=== PATIENT | male | born 1950 | race African-American/Black ===

== ENCOUNTER 2018-05-17 14:29 | Emergency (ER) | payer OTHER, MEDICAID ==
[~2018-05-17] VITALS: Ht 172.7 cm; Wt 78.0 kg
[~2018-05-17 14:29] MED LIST: ALBU6.7H IH; AMLO10TA4 PO; BENA40TA9 PO; CYCL10TA7 PO; FLUT1DIS3 IH; MELO-106 PO; METO-539 PO; NORT25CA PO; P50 PO; TERA1CAP7 PO; TIZA4TAB4 PO; TRAM50TA3 PO
[2018-05-17 16:48] VITALS: BP 198/102
== END 2018-05-17 17:48 | disposition left against medical advice (07) ==
LOC: ER 14:29 → CANBEDREQ 19:36
DX: R51 Headache (principal); R05 Cough; I16.0 Hypertensive urgency; M79.18 Myalgia, other site; F14.10 Cocaine abuse, uncomplicated; F17.200 Nicotine dependence, unspecified, uncomplicated; Z96.659 Presence of unspecified artificial knee joint; Z98.890 Other specified postprocedural states; Z79.899 Other long term (current) drug therapy; Z88.5 Allergy status to narcotic agent
CPT/HCPCS: 99281

== ENCOUNTER 2018-09-04 21:14 | Inpatient (IN) | payer MEDICARE, MEDICAID ==
[~2018-09-04] VITALS: Ht 172.7 cm; Wt 78.5 kg
[2018-09-04 23:12] LABS: CHLORIDE 114 mEq/L (98-107)
[2018-09-04 23:17] LABS: BASOPHILS % 0.6 % (0.0-2.0); EOSINOPHILS % 0.6 % (0.0-5.0); HEMATOCRIT. 37.2 % (42.0-52.0); HEMOGLOBIN. 11.9 g/dL (14.0-18.0); LYMPHOCYTES % 10.8 % (20.0-50.0); MEAN CORPUSCULAR HEMOGLOBIN 22.8 pg (28.0-32.0); MEAN CORPUSCULAR VOLUME 71.4 fL (80.0-94.0); MEAN PLATELET VOLUME 9.2 fl (7.4-10.4); MONOCYTES % 8.1 % (2.0-8.0); NEUTROPHILS % 79.9 % (40.0-76.0); PLATELET 252 x1000/uL (130-400); RED BLOOD CELL COUNT 5.22 mill/uL (4.7-6.1); RED CELL DISTRIBUTION WIDTH 17.3 % (11.6-14.6)
[2018-09-04] MEDS ORDERED: DEXTROSE 50% WATER 50ML SYRINGE IV ONE (23:30)
[2018-09-04] MEDS ORDERED: SODIUM CHLORIDE 0.9% 1,000 ML IV ONE (23:30)
[2018-09-04] MEDS ORDERED: CALCIUM GLUCONATE 1,000 MG in DEXT 5% WATER 100 ML IV ONE (23:30)
[2018-09-04] MEDS ORDERED: SODIUM BICARBONATE 8.4% 1 MEQ/ML 50ML SYR IV ONE (23:30)
[2018-09-04] MEDS ORDERED: FUROSEMIDE 100MG/10ML VIAL IV ONE (23:30)
[2018-09-04] MEDS ORDERED: INSULIN REGULAR (HUMULIN R) 300UNITS/3ML IV ONE (23:30)
[2018-09-05] VITALS (32 sets, daily range): BP systolic 114–209; BP diastolic 55–117
[2018-09-05] MEDS ORDERED: SODIUM POLYSTYRENE SULFONATE 15 G/60 ML BOT PO ONE (01:30)
[2018-09-05] MEDS ORDERED: MAGNESIUM/ALUMINUM HYDROXIDE/SIMETHICONE 30ML UDC PO PRN (02:00)
[2018-09-05] MEDS ORDERED: HYDROCODONE/ACETAMINOPHEN 5/325MG TABLET PO PRN (02:00)
[2018-09-05] MEDS ORDERED: IPRATROPIUM/ALBUTEROL 0.5-3(2.5)MG/3ML NEB INH PRN (02:00)
[2018-09-05] MEDS ORDERED: NA PHOS,M-B/NA PHOS,DI-BA ENEMA 118ML PR PRN (02:00)
[2018-09-05] MEDS ORDERED: DIPHENHYDRAMINE 50MG/ML VIAL IV PRN (02:00)
[2018-09-05] MEDS ORDERED: GUAIFENESIN 200MG/10ML SUGAR FREE UDC PO PRN (02:00)
[2018-09-05] MEDS ORDERED: ACETAMINOPHEN 650MG/20.3ML UDC GT PRN (02:00)
[2018-09-05] MEDS ORDERED: ACETAMINOPHEN 325MG TABLET PO PRN (02:00)
[2018-09-05] MEDS ORDERED: ENOXAPARIN 40MG/0.4ML SYR SUBCUT SCH (02:00)
[2018-09-05] MEDS ORDERED: DEXTROSE 50% WATER 50ML SYRINGE IV PRN (02:00)
[2018-09-05] MEDS ORDERED: ONDANSETRON HCL 4MG/2ML INJ IV PRN (02:00)
[2018-09-05] MEDS ORDERED: DOCUSATE SODIUM 100MG CAPSULE PO PRN (02:00)
[2018-09-05] MEDS ORDERED: SODIUM POLYSTYRENE SULFONATE 15 G/60 ML BOT PO SCH (03:00)
[2018-09-05] MEDS ORDERED: DEXT 5%/0.9% NACL 1,000 ML IV SCH (05:13)
[2018-09-05] MEDS ORDERED: FURO20TA4 PO (05:17)
[2018-09-05] MEDS ORDERED: PIOG15TA66 PO (05:17)
[2018-09-05] MEDS ORDERED: LOSA100T3 PO (05:17)
[2018-09-05] MEDS ORDERED: METF-416 PO (05:17)
[2018-09-05] MEDS: INSULIN LISPRO 100 UNITS/ML SUBCUT SCH ×4 (06:35→21:00)
[2018-09-05] MEDS: BLOOD SUGAR DIAGNOSTIC STRIP TEST SCH ×4 (06:35→21:29)
[2018-09-05] MEDS: SODIUM CHLORIDE 0.9% INJ 3ML FLUSH IVF SCH ×3 (06:36→21:03)
[2018-09-05] MEDS: CLONIDINE 0.1MG TABLET PO PRN ×2 (06:58→13:48)
[2018-09-05] MEDS: ENOXAPARIN 30MG/0.3ML SYR SUBCUT SCH (09:19)
[2018-09-05 09:21] LABS: BASOPHILS % 0.7 % (0.0-2.0); EOSINOPHILS % 1.5 % (0.0-5.0); HEMOGLOBIN. 11.2 g/dL (14.0-18.0); LYMPHOCYTES % 17.3 % (20.0-50.0); MEAN CORPUSCULAR HEMOGLOBIN 22.2 pg (28.0-32.0); MEAN CORPUSCULAR VOLUME 71.6 fL (80.0-94.0); MEAN PLATELET VOLUME 8.8 fl (7.4-10.4); MONOCYTES % 11.6 % (2.0-8.0); NEUTROPHILS % 68.9 % (40.0-76.0); PLATELET 232 x1000/uL (130-400); RED BLOOD CELL COUNT 5.03 mill/uL (4.7-6.1); RED CELL DISTRIBUTION WIDTH 17.2 % (11.6-14.6)
[2018-09-05] MEDS ORDERED: SODIUM POLYSTYRENE SULFONATE 15 G/60 ML BOT PO NR (09:30)
[2018-09-05 09:36] LABS: PROTHROMBIN TIME 10.5 sec (9.6-11.0)
[2018-09-05 09:53] LABS: CHLORIDE 116 mEq/L (98-107)
[2018-09-05 10:02] LABS: PHOSPHORUS 3.7 mg/dL (2.5-4.9)
[2018-09-05] MEDS: AMLODIPINE 10MG TABLET PO SCH (11:17)
[2018-09-05] MEDS ORDERED: PNEUMOCOCCAL 23-VAL P-SAC VAC 0.5 ML IM ONE (12:00)
[2018-09-05] MEDS: HYDRALAZINE HCL 50MG TABLET PO SCH ×2 (13:48→21:29)
[2018-09-05] MEDS ORDERED: MAGNESIUM 2 G PREMIX 50 ML IV SCH (16:00)
[2018-09-05] MEDS: FUROSEMIDE 40MG/4ML VIAL IVP SCH (17:24)
[2018-09-05 19:26] LABS: CLARITY URINE CLEAR (CLEAR); COLOR URINE YELLOW (YELLOW); KETONES URINE NEGATIVE (NEGATIVE); LEUKOCYTE ESTERASE URINE NEGATIVE (NEGATIVE); NITRITE URINE NEGATIVE (NEGATIVE); OCCULT BLOOD URINE NEGATIVE (NEGATIVE); PROTEIN URINE 2+ (NEGATIVE); SPECIFIC GRAVITY URINE 1.012 (1.005-1.030); UROBILINOGEN URINE 0.2 E.U./dL (0.2-1.0)
[2018-09-05] MEDS: CARVEDILOL 6.25 MG TABLET PO SCH (21:29)
[2018-09-06] VITALS: BP 116/61
[2018-09-06 04:00] VITALS: BP 103/52
[2018-09-06] MEDS: SODIUM CHLORIDE 0.9% INJ 3ML FLUSH IVF SCH ×2 (05:23→14:42)
[2018-09-06] MEDS: HYDRALAZINE HCL 50MG TABLET PO SCH ×2 (05:24→14:39)
[2018-09-06] MEDS: INSULIN LISPRO 100 UNITS/ML SUBCUT SCH ×2 (06:16→11:57)
[2018-09-06] MEDS: BLOOD SUGAR DIAGNOSTIC STRIP TEST SCH ×2 (06:16→11:49)
[2018-09-06 06:50] LABS: HEMATOCRIT. 31.4 % (42.0-52.0); HEMOGLOBIN. 9.9 g/dL (14.0-18.0); MEAN CORPUSCULAR HEMOGLOBIN 22.3 pg (28.0-32.0); MEAN CORPUSCULAR VOLUME 70.8 fL (80.0-94.0); PLATELET 223 x1000/uL (130-400); RED BLOOD CELL COUNT 4.44 mill/uL (4.7-6.1); RED CELL DISTRIBUTION WIDTH 16.5 % (11.6-14.6)
[2018-09-06 07:03] LABS: CHLORIDE 112 mEq/L (98-107)
[2018-09-06 07:11] LABS: HDL CHOLESTEROL 46 mg/dL (40-59)
[2018-09-06 07:12] LABS: LDL CHOLESTEROL 76 mg/dL (5-100)
[2018-09-06 08:00] VITALS: BP 137/68
[2018-09-06] MEDS: FUROSEMIDE 40MG/4ML VIAL IVP SCH (09:15)
[2018-09-06] MEDS: AMLODIPINE 10MG TABLET PO SCH (09:16)
[2018-09-06] MEDS: CARVEDILOL 6.25 MG TABLET PO SCH (09:16)
[2018-09-06] MEDS: ENOXAPARIN 30MG/0.3ML SYR SUBCUT SCH (09:17)
[2018-09-06 12:00] VITALS: BP 118/48
[2018-09-06] MEDS ORDERED: SODIUM POLYSTYRENE SULFONATE 15 G/60 ML BOT PO NR (12:00)
[2018-09-06 13:42] LABS: PLATELET ESTIMATE NORMAL
[2018-09-06 15:31] VITALS: BP 118/48
[2018-09-06 16:00] VITALS: BP 145/70
[2018-09-06] MEDS ORDERED: ATORVASTATIN CALCIUM 40MG TABLET PO SCH (21:00)
== END 2018-09-06 17:10 | disposition home or self-care (01) | DRG 683 ==
LOC: ER 21:14 → MICUSO 09-05 01:02 → EDBEDREQDT 09-05 01:05 → EDBEDREQSVC 09-05 01:05 → EDBEDREQ 09-05 01:05 → EDBEDREQTM 09-05 01:05 → ENRESERV 09-05 03:25 → MICUSO 09-05 04:30 → 5WST 09-05 15:06
PROVIDERS: ADMIT Family Medicine; ATTEND Family Medicine
DX: I13.11 Hypertensive heart and chronic kidney disease without heart failure, with stage 5 chronic kidney disease, or end stage renal disease (principal); N18.5 Chronic kidney disease, stage 5; N17.9 Acute kidney failure, unspecified; E11.36 Type 2 diabetes mellitus with diabetic cataract; E11.649 Type 2 diabetes mellitus with hypoglycemia without coma; E11.22 Type 2 diabetes mellitus with diabetic chronic kidney disease; E66.9 Obesity, unspecified; E78.00 Pure hypercholesterolemia, unspecified; E78.5 Hyperlipidemia, unspecified; E83.42 Hypomagnesemia; R19.7 Diarrhea, unspecified; E87.5 Hyperkalemia; F14.90 Cocaine use, unspecified, uncomplicated; Z96.653 Presence of artificial knee joint, bilateral; J44.9 Chronic obstructive pulmonary disease, unspecified; D64.9 Anemia, unspecified; M19.90 Unspecified osteoarthritis, unspecified site; Z86.73 Personal history of transient ischemic attack (TIA), and cerebral infarction without residual deficits; Z87.891 Personal history of nicotine dependence; Z88.5 Allergy status to narcotic agent; Z98.41 Cataract extraction status, right eye; Z68.26 Body mass index [BMI] 26.0-26.9, adult
CPT/HCPCS: 36415; 71045; 76770; 80061; 82962; 83036; 83735; 83880; 84100; 84132; 84484; 84550; 90732; 93005; 99285; J0610; J1650; J1815; J1940; J3475; J3490; J7042; J7060

== ENCOUNTER 2019-11-06 08:40 | Emergency (ER) | payer OTHER, MEDICAID ==
[~2019-11-06] VITALS: Ht 172.7 cm; Wt 70.0 kg
[~2019-11-06 08:40] MED LIST changes: -ALBU6.7H IH; +ALBU6.7H11 IH; -BENA40TA9 PO; -CYCL10TA7 PO; +FURO20TA4 PO; -MELO-106 PO; -P50 PO; +PIOG15TA66 PO; -TIZA4TAB4 PO; -TRAM50TA3 PO
[2019-11-06] MEDS ORDERED: ACETAMINOPHEN 500MG TABLET PO ONE (09:15)
[2019-11-06] MEDS ORDERED: IBUPROFEN 800MG TABLET PO ONE (09:15)
[2019-11-06] MEDS ORDERED: CEFTRIAXONE SODIUM 1 G/VIAL IM ONE (10:45)
[2019-11-06] MEDS ORDERED: LIDOCAINE HCL 1% 20ML VIAL (Pyxis) INJ INFIL ONE (10:45)
[2019-11-06] MEDS ORDERED: TRAMADOL 50MG TABLET PO ONE (11:45)
[2019-11-06 12:11] VITALS: BP 148/78
== END 2019-11-06 12:12 | disposition home or self-care (01) ==
LOC: ER 08:40
DX: S82.64XA Nondisplaced fracture of lateral malleolus of right fibula, initial encounter for closed fracture (principal); S90.02XA Contusion of left ankle, initial encounter; S90.32XA Contusion of left foot, initial encounter; V03.90XA Pedestrian on foot injured in collision with car, pick-up truck or van, unspecified whether traffic or nontraffic accident, initial encounter; Y93.89 Activity, other specified; Y92.410 Unspecified street and highway as the place of occurrence of the external cause; I10 Essential (primary) hypertension; E11.9 Type 2 diabetes mellitus without complications; E78.00 Pure hypercholesterolemia, unspecified; Z86.73 Personal history of transient ischemic attack (TIA), and cerebral infarction without residual deficits; Z96.659 Presence of unspecified artificial knee joint
CPT/HCPCS: 29515; 73600; 73620; 96372; 99284; J0696; J3490

== ENCOUNTER 2020-01-20 17:06 | Inpatient (IN) | payer MEDICARE, MEDICAID ==
[~2020-01-20] VITALS: Ht 172.7 cm; Wt 60.3 kg
[2020-01-20 19:42] LABS: BASOPHILS % 0.9 % (0.0-2.0); EOSINOPHILS % 0.9 % (0.0-5.0); HEMATOCRIT. 31.8 % (42.0-52.0); HEMOGLOBIN. 9.9 g/dL (14.0-18.0); LYMPHOCYTES % 19.1 % (20.0-50.0); MEAN CORPUSCULAR HEMOGLOBIN 22.3 pg (28.0-32.0); MEAN CORPUSCULAR VOLUME 71.6 fL (80.0-94.0); MEAN PLATELET VOLUME 9.9 fl (7.4-10.4); MONOCYTES % 9.7 % (2.0-8.0); NEUTROPHILS % 69.4 % (40.0-76.0); PLATELET 225 x1000/uL (130-400); RED BLOOD CELL COUNT 4.44 mill/uL (4.7-6.1); RED CELL DISTRIBUTION WIDTH 17.4 % (11.6-14.6)
[2020-01-20 19:44] LABS: CHLORIDE 118 mEq/L (98-107)
[2020-01-20 19:50] LABS: PROTHROMBIN TIME 10.6 sec (9.6-11.0)
[2020-01-20] MEDS ORDERED: ALBUTEROL (0.083%) 2.5MG/3ML NEB HHN ONE (20:15)
[2020-01-20] MEDS ORDERED: DEXTROSE 50% WATER 50ML SYRINGE IV ONE (20:15)
[2020-01-20] MEDS ORDERED: INSULIN REGULAR (HUMULIN R) 300UNITS/3ML IV ONE (20:15)
[2020-01-20] MEDS ORDERED: CALCIUM GLUCONATE 1,000 MG in DEXT 5% WATER 100 ML IV ONE (20:15)
[2020-01-20] MEDS ORDERED: SODIUM BICARBONATE 8.4% 1 MEQ/ML 50ML SYR IV ONE (20:15)
[2020-01-20 21:21] LABS: CLARITY URINE CLEAR (CLEAR); COLOR URINE YELLOW (YELLOW); KETONES URINE NEGATIVE (NEGATIVE); LEUKOCYTE ESTERASE URINE NEGATIVE (NEGATIVE); NITRITE URINE NEGATIVE (NEGATIVE); OCCULT BLOOD URINE NEGATIVE (NEGATIVE); PH URINE 5.5 (4.5-8.0); PROTEIN URINE 2+ (NEGATIVE); SPECIFIC GRAVITY URINE 1.012 (1.005-1.030); UROBILINOGEN URINE 0.2 E.U./dL (0.2-1.0)
[2020-01-20] MEDS ORDERED: DOCUSATE SODIUM 100MG CAPSULE PO PRN (23:00)
[2020-01-20] MEDS ORDERED: LORAZEPAM 2MG/ML CPJ IV PRN (23:00)
[2020-01-20] MEDS ORDERED: IPRATROPIUM/ALBUTEROL 0.5-3(2.5)MG/3ML NEB NEB PRN (23:00)
[2020-01-20] MEDS ORDERED: MAGNESIUM/ALUMINUM HYDROXIDE/SIMETHICONE 30ML UDC PO PRN (23:00)
[2020-01-20] MEDS ORDERED: ONDANSETRON HCL 4MG/2ML INJ IV PRN (23:00)
[2020-01-20] MEDS: CLONIDINE 0.1MG TABLET PO PRN (23:19)
[2020-01-20 23:52] VITALS: BP 201/85
[2020-01-21] VITALS (24 sets, daily range): BP systolic 111–206; BP diastolic 52–90
[2020-01-21 00:20] LABS: PHOSPHORUS 4.1 mg/dL (2.5-4.9)
[2020-01-21] MEDS ORDERED: HYDR100T26 PO (00:30)
[2020-01-21] MEDS ORDERED: DEXTROSE 50% WATER 50ML SYRINGE IV PRN ×2 (00:30)
[2020-01-21] MEDS ORDERED: LOSA25TA26 PO (00:30)
[2020-01-21] MEDS ORDERED: CLON0.1T PO (00:30)
[2020-01-21 00:55] LABS: HEPATITIS B SURFACE AB 4.8 mIU/mL
[2020-01-21 01:06] LABS: HEPATITIS B SURFACE ANTIGEN NEGATIVE
[2020-01-21 01:36] LABS: HEPATITIS A AB IGM NEGATIVE (NEGATIVE)
[2020-01-21] MEDS: BLOOD SUGAR DIAGNOSTIC STRIP TEST SCH ×4 (06:02→21:00)
[2020-01-21 06:07] LABS: BASOPHILS % 0.6 % (0.0-2.0); HEMOGLOBIN. 9.4 g/dL (14.0-18.0); LYMPHOCYTES % 14.9 % (20.0-50.0); MEAN CORPUSCULAR HEMOGLOBIN 22.2 pg (28.0-32.0); MEAN CORPUSCULAR VOLUME 70.8 fL (80.0-94.0); MEAN PLATELET VOLUME 9.2 fl (7.4-10.4); MONOCYTES % 12.2 % (2.0-8.0); NEUTROPHILS % 70.3 % (40.0-76.0); PLATELET 196 x1000/uL (130-400); RED BLOOD CELL COUNT 4.24 mill/uL (4.7-6.1); RED CELL DISTRIBUTION WIDTH 17.6 % (11.6-14.6)
[2020-01-21] MEDS: CLONIDINE 0.1MG TABLET PO PRN (06:33)
[2020-01-21] MEDS: INSULIN LISPRO 100 UNITS/ML SUBCUT SCH ×4 (07:20→21:00)
[2020-01-21] MEDS: ENOXAPARIN 30MG/0.3ML SYR SUBCUT SCH (09:00)
[2020-01-21] MEDS: FOLIC ACID 1MG TABLET PO SCH (10:48)
[2020-01-21] MEDS: NIFEDIPINE XL 30MG TAB PO SCH (11:27)
[2020-01-21] MEDS ORDERED: SODIUM POLYSTYRENE SULFONATE 15 G/60 ML BOT PO NR (12:00)
[2020-01-21] MEDS ORDERED: INFLUENZA VACCINE 05/PF 0.5 ML VIAL IM ONE (12:00)
[2020-01-21] MEDS ORDERED: MAGNESIUM 2 G PREMIX 50 ML IV NR (12:00)
[2020-01-21] MEDS ORDERED: CEFAZOLIN 1000MG PREMIX 50 ML IV ONE (12:49)
[2020-01-21] MEDS ORDERED: SODIUM BICARBONATE 4% (2.4MEQ) 5ML VIAL IV ONE (12:55)
[2020-01-21] MEDS ORDERED: LIDOCAINE HCL 1% 20ML VIAL (Pyxis) INJ ONE (12:55)
[2020-01-21] MEDS ORDERED: CEFAZOLIN 1000MG/50ML PREMIX IV ONE (13:15)
[2020-01-21] MEDS ORDERED: FENTANYL CITRATE/PF 50MCG/ML 2ML VIAL IV ONE (13:30)
[2020-01-21] MEDS ORDERED: HEPARIN 1000 UNITS/ML 10ML ONE (13:36)
[2020-01-21] MEDS ORDERED: EPOETIN ALFA-EPBX 10,000 UNIT/ML VIAL SUBCUT NR (21:00)
[2020-01-21] MEDS: HYDROCODONE/ACETAMINOPHEN 5/325MG TABLET PO PRN (21:34)
[2020-01-22] VITALS (13 sets, daily range): BP systolic 126–188; BP diastolic 66–98
[2020-01-22] MEDS: INSULIN LISPRO 100 UNITS/ML SUBCUT SCH ×4 (06:18→22:15)
[2020-01-22] MEDS: BLOOD SUGAR DIAGNOSTIC STRIP TEST SCH ×4 (06:18→21:57)
[2020-01-22] MEDS: CLONIDINE 0.1MG TABLET PO PRN ×2 (06:33→23:05)
[2020-01-22 06:44] LABS: BASOPHILS % 0.7 % (0.0-2.0); EOSINOPHILS % 2.3 % (0.0-5.0); HEMATOCRIT. 34.1 % (42.0-52.0); HEMOGLOBIN. 10.7 g/dL (14.0-18.0); LYMPHOCYTES % 15.6 % (20.0-50.0); MEAN CORPUSCULAR HEMOGLOBIN 22.1 pg (28.0-32.0); MEAN CORPUSCULAR VOLUME 70.7 fL (80.0-94.0); MONOCYTES % 14.1 % (2.0-8.0); NEUTROPHILS % 67.3 % (40.0-76.0); PLATELET 188 x1000/uL (130-400); RED BLOOD CELL COUNT 4.83 mill/uL (4.7-6.1); RED CELL DISTRIBUTION WIDTH 17.1 % (11.6-14.6)
[2020-01-22] MEDS: ENOXAPARIN 30MG/0.3ML SYR SUBCUT SCH (09:51)
[2020-01-22] MEDS: FOLIC ACID 1MG TABLET PO SCH (09:51)
[2020-01-22] MEDS: NIFEDIPINE XL 30MG TAB PO SCH (09:54)
[2020-01-23] VITALS (14 sets, daily range): BP systolic 107–191; BP diastolic 64–104
[2020-01-23] MEDS: BLOOD SUGAR DIAGNOSTIC STRIP TEST SCH ×4 (06:50→21:28)
[2020-01-23] MEDS: INSULIN LISPRO 100 UNITS/ML SUBCUT SCH ×4 (08:53→21:00)
[2020-01-23] MEDS: ENOXAPARIN 30MG/0.3ML SYR SUBCUT SCH (08:54)
[2020-01-23] MEDS: NIFEDIPINE XL 30MG TAB PO SCH (08:54)
[2020-01-23] MEDS: FOLIC ACID 1MG TABLET PO SCH (08:54)
[2020-01-23] MEDS: HYDROCODONE/ACETAMINOPHEN 5/325MG TABLET PO PRN ×2 (08:55→22:16)
[2020-01-23] MEDS: CLONIDINE 0.1MG TABLET PO PRN (22:16)
[2020-01-24] VITALS (12 sets, daily range): BP systolic 112–168; BP diastolic 49–95
[2020-01-24 07:02] LABS: HEMATOCRIT. 34.2 % (42.0-52.0); HEMOGLOBIN. 10.8 g/dL (14.0-18.0); MEAN CORPUSCULAR HEMOGLOBIN 22.4 pg (28.0-32.0); MEAN CORPUSCULAR VOLUME 71.1 fL (80.0-94.0); MEAN PLATELET VOLUME 9.2 fl (7.4-10.4); PLATELET 187 x1000/uL (130-400); RED BLOOD CELL COUNT 4.81 mill/uL (4.7-6.1); RED CELL DISTRIBUTION WIDTH 16.9 % (11.6-14.6)
[2020-01-24] MEDS: BLOOD SUGAR DIAGNOSTIC STRIP TEST SCH ×4 (07:07→20:51)
[2020-01-24] MEDS: INSULIN LISPRO 100 UNITS/ML SUBCUT SCH ×4 (08:35→20:51)
[2020-01-24] MEDS: ENOXAPARIN 30MG/0.3ML SYR SUBCUT SCH (08:36)
[2020-01-24] MEDS: FOLIC ACID 1MG TABLET PO SCH (08:36)
[2020-01-24] MEDS: NIFEDIPINE XL 30MG TAB PO SCH (08:36)
[2020-01-24] MEDS: HYDROCODONE/ACETAMINOPHEN 5/325MG TABLET PO PRN (11:30)
[2020-01-24 12:52] LABS: PLATELET ESTIMATE NORMAL
[2020-01-24] MEDS ORDERED: SODIUM POLYSTYRENE SULFONATE 15 G/60 ML BOT PO SCH (13:00)
[2020-01-24] MEDS: CLONIDINE 0.1MG TABLET PO PRN (20:51)
[2020-01-25] VITALS (12 sets, daily range): BP systolic 121–163; BP diastolic 58–95
[2020-01-25] MEDS: HYDROCODONE/ACETAMINOPHEN 5/325MG TABLET PO PRN (01:14)
[2020-01-25] MEDS: BLOOD SUGAR DIAGNOSTIC STRIP TEST SCH ×4 (07:10→21:30)
[2020-01-25] MEDS: INSULIN LISPRO 100 UNITS/ML SUBCUT SCH ×4 (07:20→21:00)
[2020-01-25] MEDS: ENOXAPARIN 30MG/0.3ML SYR SUBCUT SCH (08:29)
[2020-01-25] MEDS: FOLIC ACID 1MG TABLET PO SCH (08:30)
[2020-01-25] MEDS: NIFEDIPINE XL 30MG TAB PO SCH (08:31)
[2020-01-25] MEDS: CLONIDINE 0.1MG TABLET PO PRN (18:18)
[2020-01-26] VITALS (8 sets, daily range): BP systolic 113–165; BP diastolic 50–84
[2020-01-26 06:47] LABS: HEMATOCRIT. 31.3 % (42.0-52.0); HEMOGLOBIN. 9.9 g/dL (14.0-18.0); MEAN CORPUSCULAR HEMOGLOBIN 22.1 pg (28.0-32.0); MEAN PLATELET VOLUME 9.3 fl (7.4-10.4); PLATELET 200 x1000/uL (130-400); RED BLOOD CELL COUNT 4.47 mill/uL (4.7-6.1); RED CELL DISTRIBUTION WIDTH 16.5 % (11.6-14.6)
[2020-01-26] MEDS: BLOOD SUGAR DIAGNOSTIC STRIP TEST SCH ×2 (06:55→11:54)
[2020-01-26] MEDS: INSULIN LISPRO 100 UNITS/ML SUBCUT SCH ×2 (07:20→11:57)
[2020-01-26] MEDS: NIFEDIPINE XL 30MG TAB PO SCH (09:45)
[2020-01-26] MEDS: FOLIC ACID 1MG TABLET PO SCH (09:45)
[2020-01-26] MEDS: ENOXAPARIN 30MG/0.3ML SYR SUBCUT SCH (09:45)
[2020-01-26] MEDS ORDERED: NIFE-33 PO (11:28)
[2020-01-26 18:20] LABS: PLATELET ESTIMATE NORMAL
== END 2020-01-26 16:06 | disposition home or self-care (01) | DRG 640 ==
LOC: ER 17:06 → 3WST 20:43 → EDBEDREQ 20:50 → EDBEDREQTM 20:50 → ENRESERV 21:55 → 3WST 23:03
PROVIDERS: ADMIT Internal Medicine Nephrology; ATTEND Internal Medicine Nephrology
PROC: 0JH63XZ Insertion of Tunneled Vascular Access Device into Chest Subcutaneous Tissue and Fascia, Percutaneous Approach (ICD-10-PCS; principal; 2020-01-21)
PROC: 02HV33Z Insertion of Infusion Device into Superior Vena Cava, Percutaneous Approach (ICD-10-PCS; 2020-01-21)
PROC: B5181ZA Fluoroscopy of Superior Vena Cava using Low Osmolar Contrast, Guidance (ICD-10-PCS; 2020-01-21)
PROC: 5A1D70Z Performance of Urinary Filtration, Intermittent, Less than 6 Hours Per Day (ICD-10-PCS; 2020-01-23)
PROC: 5A1D70Z Performance of Urinary Filtration, Intermittent, Less than 6 Hours Per Day (ICD-10-PCS; 2020-01-25)
DX: E87.5 Hyperkalemia (principal); N18.6 End stage renal disease; I12.0 Hypertensive chronic kidney disease with stage 5 chronic kidney disease or end stage renal disease; E11.22 Type 2 diabetes mellitus with diabetic chronic kidney disease; D63.8 Anemia in other chronic diseases classified elsewhere; E83.42 Hypomagnesemia; E78.5 Hyperlipidemia, unspecified; E87.8 Other disorders of electrolyte and fluid balance, not elsewhere classified; E78.00 Pure hypercholesterolemia, unspecified; Z20.828 Contact with and (suspected) exposure to other viral communicable diseases; Z96.659 Presence of unspecified artificial knee joint; Z88.5 Allergy status to narcotic agent; Z99.2 Dependence on renal dialysis; Z86.73 Personal history of transient ischemic attack (TIA), and cerebral infarction without residual deficits; Z79.899 Other long term (current) drug therapy
CPT/HCPCS: 36415; 36558; 71045; 76937; 77001; 80048; 80053; 81003; 82728; 82962; 83036; 83540; 83550; 83735; 83970; 84100; 84484; 85025; 86705; 86706; 86709; 86803; 87340; 87426; 90686; 93005; 94640; 99152; 99153; 99291; C1750; J0610; J0690; J0885; J1642; J1644; J1650; J1815; J3010; J3475; J3490; J7060; G0500

== ENCOUNTER 2020-06-16 22:04 | Inpatient (IN) | payer MEDICARE, MEDICAID ==
[~2020-06-16] VITALS: Ht 172.7 cm; Wt 74.4 kg
[~2020-06-16 22:04] MED LIST changes: -AMLO10TA4 PO; -FURO20TA4 PO; -METO-539 PO; +NIFE-33 PO; +TERA1CAP46 PO; -TERA1CAP7 PO
[2020-06-16] MEDS ORDERED: VANCOMYCIN 1 G PREMIX 200 ML IV ONE (22:45)
[2020-06-16] MEDS ORDERED: SODIUM CHLORIDE 0.9% 1000ML BAG (SEPSIS BOLUS) IV ONE (22:45)
[2020-06-16] MEDS ORDERED: PIPERACILLIN/TAZ 3.375G PREMIX 50 ML IV ONE (22:45)
[2020-06-16 23:26] LABS: BASOPHILS % 0.8 % (0.0-2.0); HEMOGLOBIN. 12.3 g/dL (14.0-18.0); LYMPHOCYTES % 15.6 % (20.0-50.0); MEAN CORPUSCULAR HEMOGLOBIN 23.7 pg (28.0-32.0); MEAN PLATELET VOLUME 7.4 fl (7.4-10.4); MONOCYTES % 11.6 % (2.0-8.0); PLATELET 374 x1000/uL (130-400); RED CELL DISTRIBUTION WIDTH 16.4 % (11.6-14.6)
[2020-06-16 23:28] LABS: CHLORIDE 99 mEq/L (98-107)
[2020-06-16 23:30] LABS: PROTHROMBIN TIME 10.5 sec (9.6-11.0)
[2020-06-16] MEDS ORDERED: HYDROCODONE/ACETAMINOPHEN 10/325MG TABLET PO ONE (23:45)
[2020-06-17 00:43] LABS: CLARITY URINE CLEAR (CLEAR); COLOR URINE YELLOW (YELLOW); KETONES URINE TRACE (NEGATIVE); LEUKOCYTE ESTERASE URINE TRACE (NEGATIVE); NITRITE URINE NEGATIVE (NEGATIVE); OCCULT BLOOD URINE 1+ (NEGATIVE); PROTEIN URINE 2+ (NEGATIVE); SPECIFIC GRAVITY URINE 1.022 (1.005-1.030)
[2020-06-17] MEDS ORDERED: CLOP75TA33 MT (01:37)
[2020-06-17] MEDS ORDERED: GLIP10TA10 MT (01:37)
[2020-06-17] MEDS ORDERED: HYDR100T26 MT (01:37)
[2020-06-17] MEDS ORDERED: FURO20TA4 MT (01:37)
[2020-06-17] MEDS ORDERED: CLON0.1T MT (01:37)
[2020-06-17 02:29] VITALS: BP 181/87
[2020-06-17] MEDS ORDERED: ONDANSETRON HCL 4MG/2ML INJ IV PRN (03:00)
[2020-06-17] MEDS ORDERED: HYDROCODONE/ACETAMINOPHEN 5/325MG TABLET PO PRN (03:00)
[2020-06-17] MEDS ORDERED: CLONIDINE 0.1MG TABLET PO PRN (03:00)
[2020-06-17] MEDS ORDERED: DIPHENHYDRAMINE 50MG/ML VIAL IV PRN (03:00)
[2020-06-17] MEDS ORDERED: METO-385 MT (03:11)
[2020-06-17] MEDS ORDERED: ASPI-1497 MT (03:14)
[2020-06-17] MEDS ORDERED: ENOXAPARIN 60MG/0.6ML SYR SUBCUT SCH (04:00)
[2020-06-17] MEDS: MORPHINE SULFATE 2 MG/ML CPJ (NOT FOR IM USE) IV PRN ×3 (04:03→20:11)
[2020-06-17] MEDS: HYDRALAZINE HCL 100MG TABLET PO SCH ×3 (06:22→21:46)
[2020-06-17] MEDS: CLONIDINE 0.1MG TABLET PO SCH ×3 (06:22→21:46)
[2020-06-17 07:33] LABS: BASOPHILS % 0.9 % (0.0-2.0); EOSINOPHILS % 2.3 % (0.0-5.0); HEMATOCRIT. 34.6 % (42.0-52.0); HEMOGLOBIN. 11.3 g/dL (14.0-18.0); LYMPHOCYTES % 17.1 % (20.0-50.0); MEAN CORPUSCULAR HEMOGLOBIN 24.1 pg (28.0-32.0); MEAN CORPUSCULAR VOLUME 74.1 fL (80.0-94.0); MEAN PLATELET VOLUME 7.3 fl (7.4-10.4); MONOCYTES % 11.6 % (2.0-8.0); NEUTROPHILS % 68.1 % (40.0-76.0); PLATELET 335 x1000/uL (130-400); RED BLOOD CELL COUNT 4.67 mill/uL (4.7-6.1)
[2020-06-17] MEDS: BLOOD SUGAR DIAGNOSTIC STRIP TEST SCH ×4 (07:43→21:00)
[2020-06-17] MEDS: INSULIN LISPRO 100 UNITS/ML SUBCUT SCH ×4 (07:44→21:00)
[2020-06-17 08:00] VITALS: BP 118/61
[2020-06-17] MEDS: GLIPIZIDE 10MG TABLET PO SCH ×2 (08:30→17:56)
[2020-06-17] MEDS: METOPROLOL TARTRATE 50MG TABLET PO SCH ×2 (08:32→20:10)
[2020-06-17] MEDS ORDERED: ASPIRIN 81MG TABLET PO SCH (09:00)
[2020-06-17] MEDS ORDERED: FUROSEMIDE 20MG TABLET PO SCH (09:00)
[2020-06-17] MEDS ORDERED: CLOPIDOGREL 75MG TABLET PO SCH (09:00)
[2020-06-17] MEDS ORDERED: PIPERACILLIN/TAZOBACTAM 3.375 G in DEXT 5% WATER 100 ML IV SCH (09:30)
[2020-06-17] MEDS ORDERED: VANCOMYCIN 500 MG PREMIX 100 ML IV SCH (11:00)
[2020-06-17] MEDS: PIPERACILLIN/TAZOBACTAM 2.25 G in DEXTROSE 5% WATER 50 ML IV SCH ×2 (11:05→17:56)
[2020-06-17 12:00] VITALS: BP 116/62
[2020-06-17 16:00] VITALS: BP 127/65
[2020-06-17 20:00] VITALS: BP 121/59
[2020-06-17] MEDS: DEXTROSE 50% WATER 50ML SYRINGE IV PRN (21:48)
[2020-06-18] VITALS: BP 113/55
[2020-06-18] MEDS: PIPERACILLIN/TAZOBACTAM 2.25 G in DEXTROSE 5% WATER 50 ML IV SCH ×4 (00:32→23:12)
[2020-06-18 04:00] VITALS: BP 143/70
[2020-06-18] MEDS: HYDRALAZINE HCL 100MG TABLET PO SCH ×3 (05:01→23:11)
[2020-06-18] MEDS: CLONIDINE 0.1MG TABLET PO SCH ×3 (05:01→23:10)
[2020-06-18] MEDS: MORPHINE SULFATE 2 MG/ML CPJ (NOT FOR IM USE) IV PRN ×2 (05:02→19:37)
[2020-06-18] MEDS: DEXTROSE 50% WATER 50ML SYRINGE IV PRN (06:35)
[2020-06-18] MEDS ORDERED: DIPHENHYDRAMINE 50MG/ML VIAL IV PRN (07:45)
[2020-06-18] MEDS ORDERED: DEXTROSE 50% WATER 50ML SYRINGE IV PRN (07:45)
[2020-06-18] MEDS ORDERED: ONDANSETRON HCL 4MG/2ML INJ IV PRN (07:45)
[2020-06-18] MEDS ORDERED: CLONIDINE 0.1MG TABLET PO PRN (07:45)
[2020-06-18] MEDS: INSULIN LISPRO 100 UNITS/ML SUBCUT SCH ×4 (07:50→21:00)
[2020-06-18 08:00] VITALS: BP 108/58
[2020-06-18] MEDS: GLIPIZIDE 10MG TABLET PO SCH ×2 (08:00→17:05)
[2020-06-18] MEDS: ASPIRIN 81MG TABLET PO SCH (08:28)
[2020-06-18] MEDS: ENOXAPARIN 60MG/0.6ML SYR SUBCUT SCH (08:28)
[2020-06-18] MEDS: FUROSEMIDE 20MG TABLET PO SCH (08:28)
[2020-06-18] MEDS: METOPROLOL TARTRATE 50MG TABLET PO SCH ×2 (08:30→21:25)
[2020-06-18] MEDS ORDERED: CLOPIDOGREL 75MG TABLET PO SCH (09:00)
[2020-06-18] MEDS ORDERED: LIDOCAINE HCL 1% 20ML VIAL (Pyxis) INJ ONE (09:54)
[2020-06-18] MEDS ORDERED: IOHEXOL 350 MG/ML 200ML INFUS..BTL IV ONE (10:38)
[2020-06-18 12:00] VITALS: BP 109/49
[2020-06-18] MEDS: BLOOD SUGAR DIAGNOSTIC STRIP TEST SCH ×3 (12:46→21:45)
[2020-06-18] MEDS: HYDROCODONE/ACETAMINOPHEN 5/325MG TABLET PO PRN ×2 (13:15→23:12)
[2020-06-18 16:00] VITALS: BP 114/61
[2020-06-18 20:00] VITALS: BP 145/73
[2020-06-19] VITALS: BP 143/66
[2020-06-19] MEDS: MORPHINE SULFATE 2 MG/ML CPJ (NOT FOR IM USE) IV PRN ×3 (02:51→11:24)
[2020-06-19 04:00] VITALS: BP 158/80
[2020-06-19] MEDS: PIPERACILLIN/TAZOBACTAM 2.25 G in DEXTROSE 5% WATER 50 ML IV SCH ×3 (05:03→21:35)
[2020-06-19] MEDS: HYDRALAZINE HCL 100MG TABLET PO SCH ×3 (05:03→21:35)
[2020-06-19] MEDS: CLONIDINE 0.1MG TABLET PO SCH ×3 (05:03→21:34)
[2020-06-19] MEDS: GLIPIZIDE 10MG TABLET PO SCH (07:20)
[2020-06-19] MEDS ORDERED: HEPARIN SODIUM 1,000 UNIT/1ML VIAL IV ONE (07:36)
[2020-06-19] MEDS: INSULIN LISPRO 100 UNITS/ML SUBCUT SCH ×4 (07:50→21:00)
[2020-06-19 08:06] VITALS: BP 142/64
[2020-06-19] MEDS: BLOOD SUGAR DIAGNOSTIC STRIP TEST SCH ×4 (08:12→21:35)
[2020-06-19] MEDS: METOPROLOL TARTRATE 50MG TABLET PO SCH ×2 (09:03→21:34)
[2020-06-19] MEDS: ENOXAPARIN 60MG/0.6ML SYR SUBCUT SCH (09:05)
[2020-06-19 11:12] VITALS: BP 120/57
[2020-06-19] MEDS ORDERED: DIPHENHYDRAMINE 50MG/ML VIAL ONE (11:57)
[2020-06-19] MEDS ORDERED: MIDAZOLAM HCL 2 MG/2 ML VIAL ONE ×2 (11:57→13:21)
[2020-06-19] MEDS ORDERED: FENTANYL CITRATE/PF 50MCG/ML 2ML VIAL ONE ×2 (11:58→13:21)
[2020-06-19] MEDS ORDERED: IODIXANOL 320MG/ML 100 ML BOTTLE IV ONE (12:42)
[2020-06-19] MEDS ORDERED: LIDOCAINE HCL 1% 20ML VIAL (Pyxis) INJ ONE (12:42)
[2020-06-19] MEDS ORDERED: IOHEXOL-300 100 ML BOTTLE ONE (13:13)
[2020-06-19] MEDS ORDERED: FENTANYL CITRATE/PF 50MCG/ML 5ML VIAL ONE (14:13)
[2020-06-19] MEDS ORDERED: MIDAZOLAM HCL 5 MG/5 ML VIAL ONE (14:14)
[2020-06-19 16:08] VITALS: BP 167/83
[2020-06-19] MEDS: CLOPIDOGREL 75MG TABLET PO SCH (18:37)
[2020-06-19] MEDS: ASPIRIN 81MG TABLET PO SCH (18:37)
[2020-06-19] MEDS: FUROSEMIDE 20MG TABLET PO SCH (18:38)
[2020-06-19 20:00] VITALS: BP 128/80
[2020-06-19 21:00] LABS: HEMATOCRIT. 35.5 % (42.0-52.0); HEMOGLOBIN. 11.4 g/dL (14.0-18.0); MEAN CORPUSCULAR HEMOGLOBIN 23.9 pg (28.0-32.0); MEAN CORPUSCULAR VOLUME 74.8 fL (80.0-94.0); MEAN PLATELET VOLUME 7.1 fl (7.4-10.4); PLATELET 333 x1000/uL (130-400); RED BLOOD CELL COUNT 4.74 mill/uL (4.7-6.1); RED CELL DISTRIBUTION WIDTH 16.2 % (11.6-14.6)
[2020-06-19 21:33] LABS: PLATELET ESTIMATE NORMAL
[2020-06-20] VITALS: BP 115/55
[2020-06-20 04:00] VITALS: BP 109/61
[2020-06-20] MEDS: HYDRALAZINE HCL 100MG TABLET PO SCH ×2 (05:37→14:14)
[2020-06-20] MEDS: CLONIDINE 0.1MG TABLET PO SCH ×2 (05:37→14:00)
[2020-06-20] MEDS: PIPERACILLIN/TAZOBACTAM 2.25 G in DEXTROSE 5% WATER 50 ML IV SCH ×2 (05:45→14:00)
[2020-06-20] MEDS: BLOOD SUGAR DIAGNOSTIC STRIP TEST SCH ×2 (05:45→11:47)
[2020-06-20] MEDS: MORPHINE SULFATE 2 MG/ML CPJ (NOT FOR IM USE) IV PRN ×2 (05:45→11:20)
[2020-06-20] MEDS: INSULIN LISPRO 100 UNITS/ML SUBCUT SCH ×2 (07:50→12:21)
[2020-06-20] MEDS: ASPIRIN 81MG TABLET PO SCH (08:27)
[2020-06-20] MEDS: CLOPIDOGREL 75MG TABLET PO SCH (08:27)
[2020-06-20] MEDS: METOPROLOL TARTRATE 50MG TABLET PO SCH (08:28)
[2020-06-20] MEDS: FUROSEMIDE 20MG TABLET PO SCH (08:28)
[2020-06-20 08:31] VITALS: BP 145/66
[2020-06-20] MEDS ORDERED: ENOXAPARIN 80MG/0.8ML SYR SUBCUT SCH (09:00)
[2020-06-20 12:12] VITALS: BP 150/97
[2020-06-20] MEDS ORDERED: CLOP75TA15 PO (13:00)
[2020-06-20 13:42] VITALS: BP 145/88
== END 2020-06-20 15:35 | disposition home or self-care (01) | DRG 252 ==
LOC: ER 22:04 → 6WST 23:28 → EDBEDREQTM 23:31 → EDBEDREQ 23:31 → EDBEDREQSVC 23:31 → ENRESERV 23:56
PROVIDERS: ADMIT Internal Medicine Nephrology; ATTEND Internal Medicine Nephrology
PROC: 05H933Z Insertion of Infusion Device into Right Brachial Vein, Percutaneous Approach (ICD-10-PCS; 2020-06-18)
PROC: B54MZZA Ultrasonography of Right Upper Extremity Veins, Guidance (ICD-10-PCS; 2020-06-18)
PROC: 5A1D70Z Performance of Urinary Filtration, Intermittent, Less than 6 Hours Per Day (ICD-10-PCS; 2020-06-18)
PROC: 047Q3ZZ Dilation of Left Anterior Tibial Artery, Percutaneous Approach (ICD-10-PCS; principal; 2020-06-19)
PROC: 047U3ZZ Dilation of Left Peroneal Artery, Percutaneous Approach (ICD-10-PCS; 2020-06-19)
PROC: 047N3ZZ Dilation of Left Popliteal Artery, Percutaneous Approach (ICD-10-PCS; 2020-06-19)
PROC: B41G1ZZ Fluoroscopy of Left Lower Extremity Arteries using Low Osmolar Contrast (ICD-10-PCS; 2020-06-19)
DX: I70.244 Atherosclerosis of native arteries of left leg with ulceration of heel and midfoot (principal); N18.6 End stage renal disease; E44.1 Mild protein-calorie malnutrition; I12.0 Hypertensive chronic kidney disease with stage 5 chronic kidney disease or end stage renal disease; E11.51 Type 2 diabetes mellitus with diabetic peripheral angiopathy without gangrene; L97.429 Non-pressure chronic ulcer of left heel and midfoot with unspecified severity; E11.621 Type 2 diabetes mellitus with foot ulcer; E11.22 Type 2 diabetes mellitus with diabetic chronic kidney disease; E11.628 Type 2 diabetes mellitus with other skin complications; D64.9 Anemia, unspecified; Z96.653 Presence of artificial knee joint, bilateral; E78.5 Hyperlipidemia, unspecified; L60.8 Other nail disorders; L60.0 Ingrowing nail; Z20.822 Contact with and (suspected) exposure to COVID-19; L08.9 Local infection of the skin and subcutaneous tissue, unspecified; Z86.73 Personal history of transient ischemic attack (TIA), and cerebral infarction without residual deficits; Z87.891 Personal history of nicotine dependence; Z98.41 Cataract extraction status, right eye; Z99.2 Dependence on renal dialysis; Z88.5 Allergy status to narcotic agent; Z68.24 Body mass index [BMI] 24.0-24.9, adult
CPT/HCPCS: 36415; 37228; 37232; 71045; 73630; 75635; 75710; 76937; 80048; 80053; 80202; 81003; 82962; 83036; 83605; 84145; 84484; 85025; 85347; 87426; 93005; 99291; C1725; C1760; C1769; C1893; C1894; J1200; J1644; J1650; J2250; J2270; J2543; J3010; J3370; J3490; J7030; J7060; Q9967

== ENCOUNTER 2020-07-03 11:30 | Inpatient (IN) | payer MEDICARE, MEDICAID ==
[~2020-07-03] VITALS: Ht 167.6 cm; Wt 70.1 kg
[~2020-07-03 11:30] MED LIST changes: -ALBU6.7H11 IH; +ASPI-1497 MT; +CLON0.1T MT; +CLOP75TA15 PO; +CLOP75TA33 MT; -FLUT1DIS3 IH; +FURO20TA4 MT; +GLIP10TA10 MT; +HYDR100T26 MT; +METO-385 MT; -NIFE-33 PO; -NORT25CA PO; -PIOG15TA66 PO; -TERA1CAP46 PO
[2020-07-03 12:13] LABS: BASOPHILS % 0.6 % (0.0-2.0); EOSINOPHILS % 2.9 % (0.0-5.0); HEMOGLOBIN. 8.4 g/dL (14.0-18.0); LYMPHOCYTES % 8.1 % (20.0-50.0); MEAN CORPUSCULAR HEMOGLOBIN 23.9 pg (28.0-32.0); MEAN CORPUSCULAR VOLUME 73.9 fL (80.0-94.0); MEAN PLATELET VOLUME 7.3 fl (7.4-10.4); MONOCYTES % 14.6 % (2.0-8.0); NEUTROPHILS % 73.8 % (40.0-76.0); PLATELET 286 x1000/uL (130-400); RED BLOOD CELL COUNT 3.52 mill/uL (4.7-6.1); RED CELL DISTRIBUTION WIDTH 16.2 % (11.6-14.6)
[2020-07-03 12:20] LABS: CHLORIDE 101 mEq/L (98-107)
[2020-07-03] MEDS ORDERED: ONDANSETRON HCL 4MG/2ML INJ IV ONE (12:30)
[2020-07-03] MEDS ORDERED: MORPHINE SULFATE 4 MG/ML CPJ (NOT FOR IM USE) IV ONE (12:30)
[2020-07-03 22:00] VITALS: BP 177/78
[2020-07-04] VITALS: BP 180/74
[2020-07-04] MEDS: MORPHINE SULFATE 2 MG/ML CPJ (NOT FOR IM USE) IV PRN ×4 (02:12→22:14)
[2020-07-04] MEDS: CLONIDINE 0.1MG TABLET PO PRN (02:13)
[2020-07-04 04:00] VITALS: BP 149/74
[2020-07-04] MEDS: HYDRALAZINE HCL 100MG TABLET PO SCH ×3 (06:29→22:03)
[2020-07-04] MEDS: DEXTROSE 50% WATER 50ML SYRINGE IV PRN ×4 (06:29→21:17)
[2020-07-04] MEDS: BLOOD SUGAR DIAGNOSTIC STRIP TEST SCH ×4 (07:10→21:00)
[2020-07-04] MEDS: INSULIN LISPRO 100 UNITS/ML SUBCUT SCH ×4 (07:40→21:00)
[2020-07-04] MEDS ORDERED: GLIPIZIDE 10MG TABLET PO SCH (07:40)
[2020-07-04 08:00] VITALS: BP 173/76
[2020-07-04] MEDS ORDERED: ENOXAPARIN 30MG/0.3ML SYR SUBCUT SCH (09:00)
[2020-07-04] MEDS: FUROSEMIDE 20MG TABLET PO SCH (10:05)
[2020-07-04] MEDS: METOPROLOL TARTRATE 50MG TABLET PO SCH ×2 (10:05→22:04)
[2020-07-04 12:33] VITALS: BP 155/80
[2020-07-04] MEDS ORDERED: DEXTROSE 10% WATER 500 ML IV ONE ×2 (13:45→19:00)
[2020-07-04] MEDS: CLONIDINE 0.1MG TABLET PO SCH (13:48)
[2020-07-04 20:00] VITALS: BP 157/71
[2020-07-04] MEDS ORDERED: DEXT 10% WATER 1,000 ML IV SCH (21:15)
[2020-07-05] VITALS (10 sets, daily range): BP systolic 94–150; BP diastolic 55–84
[2020-07-05] MEDS: DEXTROSE 50% WATER 50ML SYRINGE IV PRN ×4 (02:07→11:58)
[2020-07-05] MEDS: MORPHINE SULFATE 2 MG/ML CPJ (NOT FOR IM USE) IV PRN (02:48)
[2020-07-05] MEDS: DEXT 10% WATER 1,000 ML IV SCH ×2 (02:56→09:05)
[2020-07-05] MEDS ORDERED: GLUCAGON,HUMAN RECOMBINANT 1MG/VIAL IM NR (06:15)
[2020-07-05 06:25] LABS: HEMATOCRIT. 25.1 % (42.0-52.0); HEMOGLOBIN. 7.9 g/dL (14.0-18.0); MEAN CORPUSCULAR HEMOGLOBIN 23.5 pg (28.0-32.0); MEAN CORPUSCULAR VOLUME 74.4 fL (80.0-94.0); MEAN PLATELET VOLUME 7.9 fl (7.4-10.4); PLATELET 290 x1000/uL (130-400); RED BLOOD CELL COUNT 3.37 mill/uL (4.7-6.1)
[2020-07-05] MEDS: BLOOD SUGAR DIAGNOSTIC STRIP TEST SCH ×4 (07:10→21:00)
[2020-07-05] MEDS: INSULIN LISPRO 100 UNITS/ML SUBCUT SCH ×3 (07:40→13:00)
[2020-07-05] MEDS: HYDRALAZINE HCL 100MG TABLET PO SCH ×3 (07:50→22:00)
[2020-07-05] MEDS: METOPROLOL TARTRATE 50MG TABLET PO SCH (09:00)
[2020-07-05] MEDS: FUROSEMIDE 20MG TABLET PO SCH (09:07)
[2020-07-05] MEDS: DIPHENHYDRAMINE 50MG/ML VIAL IV PRN (09:57)
[2020-07-05] MEDS ORDERED: DEXT 10% WATER 1,000 ML IV SCH (10:00)
[2020-07-05] MEDS: LORAZEPAM 2MG/ML CPJ IV PRN ×3 (10:14→19:39)
[2020-07-05] MEDS: HALOPERIDOL LACTATE 5MG/ML VIAL IM PRN ×3 (11:11→19:42)
[2020-07-05 13:42] LABS: PLATELET ESTIMATE NORMAL
[2020-07-05] MEDS: DEXTROSE 10% WATER 1,000 ML IV SCH (15:31)
[2020-07-05 19:15] LABS: BG BASE EXCESS -4.3 mmol/L (-2.0-2.0); BG CARBOXYHEMOGLOBIN 0.9 % (0.5-1.5); BG DEOXYHEMOGLOBIN 13.6 % (0.0-5.0); BG FRACTION INSPIRED OXYGEN 44; BG HCO3 ACT 23.9 mmol/L (22.0-26.0); BG METHEMOGLOBIN 0.3 % (0.0-1.5); BG OXYGEN SATURATION 86.2 % (92.0-98.5); BG OXYHEMOGLOBIN 85.2 % (94.0-97.0); BG PCO2 62.9 mmHg (35.0-45.0); BG PH 7.198 (7.350-7.450); BG PO2 62.9 mmHg (75.0-100.0); BG SAMPLE SITE RIGHT RADIAL; BG TOTAL HEMOGLOBIN 8.6 g/dL (12.0-18.0); BG VENT MODE NASAL CANNULA
[2020-07-05 19:58] LABS: ETHANOL BLOOD < 10 mg/dL
[2020-07-05 20:03] LABS: T4 FREE 1.03 ng/dL (0.76-1.46)
[2020-07-05] MEDS ORDERED: HEPARIN SODIUM 1,000 UNIT/1ML VIAL IV ONE (20:15)
[2020-07-05 20:29] LABS: VITAMIN B12 SERUM 370 pg/mL (211-911)
[2020-07-05] MEDS ORDERED: HALOPERIDOL LACTATE 5MG/ML VIAL IM ONE (20:30)
[2020-07-05] MEDS ORDERED: HALOPERIDOL LACTATE 5MG/ML VIAL IM PRN (20:30)
[2020-07-05 20:32] LABS: FOLIC ACID (FOLATE) SERUM > 20.00 ng/mL (>5.38)
[2020-07-05] MEDS: LEVETIRACETAM 500MG TABLET PO SCH (21:00)
[2020-07-05] MEDS: CLONIDINE 0.1MG TABLET PO SCH (21:00)
[2020-07-05 23:25] LABS: BG BASE EXCESS 0.2 mmol/L (-2.0-2.0); BG CARBOXYHEMOGLOBIN 1.3 % (0.5-1.5); BG DEOXYHEMOGLOBIN 10.9 % (0.0-5.0); BG FRACTION INSPIRED OXYGEN 40; BG HCO3 ACT 26.5 mmol/L (22.0-26.0); BG METHEMOGLOBIN 0.3 % (0.0-1.5); BG OXYGEN SATURATION 88.9 % (92.0-98.5); BG OXYHEMOGLOBIN 87.5 % (94.0-97.0); BG PCO2 51.6 mmHg (35.0-45.0); BG PH 7.329 (7.350-7.450); BG PO2 59.3 mmHg (75.0-100.0); BG SAMPLE SITE RIGHT RADIAL; BG TOTAL HEMOGLOBIN 9.1 g/dL (12.0-18.0); BG VENT MODE MASK - BIPAP
[2020-07-06] VITALS (10 sets, daily range): BP systolic 91–158; BP diastolic 35–68
[2020-07-06] MEDS: DEXTROSE 10% WATER 1,000 ML IV SCH (02:17)
[2020-07-06] MEDS: HYDRALAZINE HCL 100MG TABLET PO SCH ×3 (05:14→21:20)
[2020-07-06 06:25] LABS: HEMATOCRIT. 24.4 % (42.0-52.0); HEMOGLOBIN. 7.6 g/dL (14.0-18.0); MEAN CORPUSCULAR HEMOGLOBIN 23.4 pg (28.0-32.0); MEAN CORPUSCULAR VOLUME 75.5 fL (80.0-94.0); PLATELET 240 x1000/uL (130-400); RED BLOOD CELL COUNT 3.23 mill/uL (4.7-6.1); RED CELL DISTRIBUTION WIDTH 16.1 % (11.6-14.6)
[2020-07-06] MEDS: BLOOD SUGAR DIAGNOSTIC STRIP TEST SCH ×4 (08:11→21:15)
[2020-07-06] MEDS ORDERED: PIPERACILLIN/TAZOBACTAM 3.375 G in DEXT 5% WATER 100 ML IV SCH (08:15)
[2020-07-06] MEDS: LEVETIRACETAM 500MG TABLET PO SCH ×2 (08:54→21:19)
[2020-07-06] MEDS: FUROSEMIDE 20MG TABLET PO SCH (09:00)
[2020-07-06 09:25] LABS: BG BASE EXCESS 2.4 mmol/L (-2.0-2.0); BG CARBOXYHEMOGLOBIN 1.7 % (0.5-1.5); BG DEOXYHEMOGLOBIN 0.6 % (0.0-5.0); BG FRACTION INSPIRED OXYGEN 30; BG HCO3 ACT 27.6 mmol/L (22.0-26.0); BG METHEMOGLOBIN 0.3 % (0.0-1.5); BG OXYGEN SATURATION 99.4 % (92.0-98.5); BG OXYHEMOGLOBIN 97.4 % (94.0-97.0); BG PCO2 46.1 mmHg (35.0-45.0); BG PH 7.395 (7.350-7.450); BG PO2 149.7 mmHg (75.0-100.0); BG SAMPLE SITE LEFT RADIAL; BG TOTAL HEMOGLOBIN 7.7 g/dL (12.0-18.0); BG VENT MODE MASK - BIPAP
[2020-07-06] MEDS: PIPERACILLIN/TAZOBACTAM 2.25 G in DEXTROSE 5% WATER 50 ML IV SCH ×2 (10:17→17:47)
[2020-07-06] MEDS ORDERED: DEXT 10% WATER 1,000 ML IV SCH ×2 (13:00)
[2020-07-06] MEDS ORDERED: DEXTROSE 50% WATER 50ML SYRINGE IV PRN (14:15)
[2020-07-06 16:45] LABS: CLARITY URINE CLEAR (CLEAR); COLOR URINE YELLOW (YELLOW); KETONES URINE NEGATIVE (NEGATIVE); LEUKOCYTE ESTERASE URINE TRACE (NEGATIVE); NITRITE URINE NEGATIVE (NEGATIVE); OCCULT BLOOD URINE NEGATIVE (NEGATIVE); PROTEIN URINE 2+ (NEGATIVE); SPECIFIC GRAVITY URINE 1.014 (1.005-1.030); UROBILINOGEN URINE 0.2 E.U./dL (0.2-1.0)
[2020-07-06 17:38] LABS: PLATELET ESTIMATE NORMAL
[2020-07-06] MEDS: INSULIN LISPRO 100 UNITS/ML SUBCUT SCH ×2 (17:47→21:22)
[2020-07-06] MEDS: HYDROCODONE/ACETAMINOPHEN 5/325MG TABLET PO PRN (18:02)
[2020-07-06] MEDS: MORPHINE SULFATE 2 MG/ML CPJ (NOT FOR IM USE) IV PRN (20:35)
[2020-07-06] MEDS: CLONIDINE 0.1MG TABLET PO SCH (21:19)
[2020-07-06] MEDS: DIPHENHYDRAMINE 50MG/ML VIAL IV PRN (22:54)
[2020-07-07] VITALS (11 sets, daily range): BP systolic 130–158; BP diastolic 63–86
[2020-07-07] MEDS: PIPERACILLIN/TAZOBACTAM 2.25 G in DEXTROSE 5% WATER 50 ML IV SCH ×3 (01:48→17:21)
[2020-07-07] MEDS: HYDROCODONE/ACETAMINOPHEN 5/325MG TABLET PO PRN ×2 (02:51→15:47)
[2020-07-07] MEDS: LORAZEPAM 2MG/ML CPJ IV PRN (03:04)
[2020-07-07] MEDS: HYDRALAZINE HCL 100MG TABLET PO SCH ×3 (06:37→20:56)
[2020-07-07 06:46] LABS: BASOPHILS % 0.9 % (0.0-2.0); EOSINOPHILS % 3.4 % (0.0-5.0); HEMATOCRIT. 22.5 % (42.0-52.0); HEMOGLOBIN. 7.2 g/dL (14.0-18.0); LYMPHOCYTES % 9.6 % (20.0-50.0); MEAN CORPUSCULAR HEMOGLOBIN 23.7 pg (28.0-32.0); MEAN CORPUSCULAR VOLUME 74.7 fL (80.0-94.0); MEAN PLATELET VOLUME 7.8 fl (7.4-10.4); MONOCYTES % 14.4 % (2.0-8.0); NEUTROPHILS % 71.7 % (40.0-76.0); PLATELET 254 x1000/uL (130-400); RED BLOOD CELL COUNT 3.01 mill/uL (4.7-6.1); RED CELL DISTRIBUTION WIDTH 15.7 % (11.6-14.6)
[2020-07-07] MEDS: BLOOD SUGAR DIAGNOSTIC STRIP TEST SCH ×4 (07:30→21:00)
[2020-07-07] MEDS: INSULIN LISPRO 100 UNITS/ML SUBCUT SCH ×4 (08:00→21:00)
[2020-07-07] MEDS: LEVETIRACETAM 500MG TABLET PO SCH ×2 (09:05→20:56)
[2020-07-07] MEDS: FUROSEMIDE 20MG TABLET PO SCH (09:05)
[2020-07-07] MEDS: DIPHENHYDRAMINE 50MG/ML VIAL IV PRN ×2 (10:56→20:56)
[2020-07-07] MEDS: TAMSULOSIN HCL 0.4MG SR CAPSULE PO SCH (13:48)
[2020-07-07 19:11] LABS: INSULIN 5.2 uIU/mL (2.6-24.9)
[2020-07-07] MEDS: CLONIDINE 0.1MG TABLET PO SCH (20:56)
[2020-07-07] MEDS: HALOPERIDOL LACTATE 5MG/ML VIAL IM PRN (20:57)
[2020-07-08] VITALS (19 sets, daily range): BP systolic 131–174; BP diastolic 50–88
[2020-07-08] MEDS: PIPERACILLIN/TAZOBACTAM 2.25 G in DEXTROSE 5% WATER 50 ML IV SCH ×3 (02:12→18:11)
[2020-07-08] MEDS: HALOPERIDOL LACTATE 5MG/ML VIAL IM PRN ×2 (02:15→23:54)
[2020-07-08 03:19] LABS: *AMPHETAMINES SCREEN URINE NEGATIVE (NEGATIVE); *BARBITURATES SCREEN URINE NEGATIVE (NEGATIVE); *BENZODIAZEPINES SCREEN URINE NEGATIVE (NEGATIVE); *COCAINE SCREEN URINE NEGATIVE (NEGATIVE)
[2020-07-08 03:20] LABS: CANNABINOID URINE SCREEN NEGATIVE (NEGATIVE); METHADONE URINE SCREEN NEGATIVE (NEGATIVE); OPIATES URINE SCREEN PRESUMTIVE POSITIVE (NEGATIVE); PHENCYCLIDINE URINE SCREEN NEGATIVE (NEGATIVE)
[2020-07-08] MEDS: HYDROCODONE/ACETAMINOPHEN 5/325MG TABLET PO PRN ×2 (06:13→19:22)
[2020-07-08] MEDS: HYDRALAZINE HCL 100MG TABLET PO SCH ×3 (06:13→22:02)
[2020-07-08] MEDS: BLOOD SUGAR DIAGNOSTIC STRIP TEST SCH ×4 (07:30→21:00)
[2020-07-08] MEDS: DIPHENHYDRAMINE 50MG/ML VIAL IV PRN (09:07)
[2020-07-08] MEDS: LEVETIRACETAM 500MG TABLET PO SCH ×2 (09:07→22:02)
[2020-07-08] MEDS: TAMSULOSIN HCL 0.4MG SR CAPSULE PO SCH (09:08)
[2020-07-08] MEDS: INSULIN LISPRO 100 UNITS/ML SUBCUT SCH ×4 (09:10→21:00)
[2020-07-08 10:22] LABS: HEMATOCRIT. 21.1 % (42.0-52.0); MEAN CORPUSCULAR HEMOGLOBIN 24.4 pg (28.0-32.0); MEAN CORPUSCULAR VOLUME 74.6 fL (80.0-94.0); MEAN PLATELET VOLUME 7.6 fl (7.4-10.4); PLATELET 221 x1000/uL (130-400); RED BLOOD CELL COUNT 2.84 mill/uL (4.7-6.1); RED CELL DISTRIBUTION WIDTH 16.1 % (11.6-14.6)
[2020-07-08 10:40] LABS: HEMOGLOBIN. 6.9 g/dL (14.0-18.0)
[2020-07-08] MEDS: MORPHINE SULFATE 2 MG/ML CPJ (NOT FOR IM USE) IV PRN ×2 (13:38→18:15)
[2020-07-08] MEDS: CLONIDINE 0.1MG TABLET PO PRN (16:29)
[2020-07-08 16:50] LABS: PLATELET ESTIMATE NORMAL
[2020-07-08 19:18] LABS: HEMATOCRIT 25.2 % (42.0-52.0); HEMOGLOBIN 8.3 g/dL (14.0-18.0)
[2020-07-08 19:33] LABS: INR 1.1; PROTHROMBIN TIME 11.6 sec (9.6-11.0)
[2020-07-08] MEDS ORDERED: EPOETIN ALFA-EPBX 4,000 UNIT/ML VIAL SUBCUT NR (21:00)
[2020-07-08] MEDS: CLONIDINE 0.1MG TABLET PO SCH (22:03)
[2020-07-09] VITALS (13 sets, daily range): BP systolic 128–161; BP diastolic 70–89
[2020-07-09] MEDS: PIPERACILLIN/TAZOBACTAM 2.25 G in DEXTROSE 5% WATER 50 ML IV SCH ×3 (01:53→17:14)
[2020-07-09] MEDS: HALOPERIDOL LACTATE 5MG/ML VIAL IM PRN (04:20)
[2020-07-09] MEDS: HYDRALAZINE HCL 100MG TABLET PO SCH ×3 (07:06→21:40)
[2020-07-09] MEDS: BLOOD SUGAR DIAGNOSTIC STRIP TEST SCH ×4 (07:48→21:00)
[2020-07-09] MEDS: INSULIN LISPRO 100 UNITS/ML SUBCUT SCH ×4 (07:48→23:21)
[2020-07-09] MEDS: TAMSULOSIN HCL 0.4MG SR CAPSULE PO SCH (08:45)
[2020-07-09] MEDS: LEVETIRACETAM 500MG TABLET PO SCH ×2 (08:45→21:41)
[2020-07-09] MEDS: DIPHENHYDRAMINE 50MG/ML VIAL IV PRN (09:30)
[2020-07-09] MEDS ORDERED: HYDROCODONE/ACETAMINOPHEN 5/325MG TABLET PO PRN (12:30)
[2020-07-09] MEDS: CLONIDINE 0.1MG TABLET PO PRN (16:29)
[2020-07-09] MEDS: MORPHINE SULFATE 2 MG/ML CPJ (NOT FOR IM USE) IV PRN (18:22)
[2020-07-09] MEDS: CLONIDINE 0.1MG TABLET PO SCH (21:40)
[2020-07-10] VITALS (12 sets, daily range): BP systolic 117–180; BP diastolic 60–89
[2020-07-10] MEDS: PIPERACILLIN/TAZOBACTAM 2.25 G in DEXTROSE 5% WATER 50 ML IV SCH ×3 (02:05→17:41)
[2020-07-10] MEDS: HYDRALAZINE HCL 100MG TABLET PO SCH ×3 (05:34→21:15)
[2020-07-10] MEDS: INSULIN LISPRO 100 UNITS/ML SUBCUT SCH ×4 (08:00→21:00)
[2020-07-10] MEDS: DIPHENHYDRAMINE 50MG/ML VIAL IV PRN ×3 (08:05→21:19)
[2020-07-10] MEDS: CLONIDINE 0.1MG TABLET PO PRN (08:06)
[2020-07-10] MEDS: MORPHINE SULFATE 2 MG/ML CPJ (NOT FOR IM USE) IV PRN ×2 (08:06→13:49)
[2020-07-10] MEDS: TAMSULOSIN HCL 0.4MG SR CAPSULE PO SCH (08:07)
[2020-07-10] MEDS: LEVETIRACETAM 500MG TABLET PO SCH ×2 (08:07→21:15)
[2020-07-10] MEDS: BLOOD SUGAR DIAGNOSTIC STRIP TEST SCH ×4 (08:17→21:00)
[2020-07-10] MEDS: HYDROCODONE/ACETAMINOPHEN 10/325MG TABLET PO PRN ×2 (10:53→17:40)
[2020-07-10 13:07] LABS: PRO INSULIN 5.6 pmol/L (0.0-10.0)
[2020-07-10] MEDS: CLONIDINE 0.1MG TABLET PO SCH (21:16)
[2020-07-10] MEDS: EPOETIN ALFA-EPBX 4,000 UNIT/ML VIAL SUBCUT SCH (21:17)
[2020-07-10] MEDS: HALOPERIDOL LACTATE 5MG/ML VIAL IM PRN (21:21)
[2020-07-11] VITALS (15 sets, daily range): BP systolic 111–163; BP diastolic 48–75
[2020-07-11] MEDS: MORPHINE SULFATE 2 MG/ML CPJ (NOT FOR IM USE) IV PRN ×3 (00:51→18:58)
[2020-07-11] MEDS: PIPERACILLIN/TAZOBACTAM 2.25 G in DEXTROSE 5% WATER 50 ML IV SCH (00:59)
[2020-07-11] MEDS: HYDRALAZINE HCL 100MG TABLET PO SCH ×3 (06:00→21:34)
[2020-07-11] MEDS: BLOOD SUGAR DIAGNOSTIC STRIP TEST SCH ×4 (07:30→21:34)
[2020-07-11] MEDS: INSULIN LISPRO 100 UNITS/ML SUBCUT SCH ×4 (07:58→21:00)
[2020-07-11] MEDS: LEVETIRACETAM 500MG TABLET PO SCH ×2 (08:01→21:33)
[2020-07-11] MEDS: TAMSULOSIN HCL 0.4MG SR CAPSULE PO SCH (08:01)
[2020-07-11] MEDS ORDERED: LIDOCAINE HCL 1% 20ML VIAL (Pyxis) INJ ONE (10:16)
[2020-07-11] MEDS ORDERED: IOHEXOL-300 100 ML BOTTLE ONE (10:16)
[2020-07-11] MEDS ORDERED: IODIXANOL 320MG/ML 100 ML BOTTLE IV ONE (10:16)
[2020-07-11] MEDS ORDERED: FENTANYL CITRATE/PF 50MCG/ML 2ML VIAL ONE ×2 (11:04→11:27)
[2020-07-11] MEDS ORDERED: MIDAZOLAM HCL 2 MG/2 ML VIAL ONE ×2 (11:04→11:27)
[2020-07-11] MEDS ORDERED: DIPHENHYDRAMINE 50MG/ML VIAL ONE (11:33)
[2020-07-11] MEDS ORDERED: HYDRALAZINE 20MG/ML VIAL ONE (11:42)
[2020-07-11 12:45] LABS: BASOPHILS % 0.9 % (0.0-2.0); EOSINOPHILS % 2.7 % (0.0-5.0); HEMATOCRIT. 26.5 % (42.0-52.0); HEMOGLOBIN. 8.6 g/dL (14.0-18.0); LYMPHOCYTES % 7.9 % (20.0-50.0); MEAN CORPUSCULAR HEMOGLOBIN 25.1 pg (28.0-32.0); MEAN CORPUSCULAR VOLUME 77.3 fL (80.0-94.0); MEAN PLATELET VOLUME 7.4 fl (7.4-10.4); MONOCYTES % 13.4 % (2.0-8.0); NEUTROPHILS % 75.1 % (40.0-76.0); PLATELET 225 x1000/uL (130-400); RED BLOOD CELL COUNT 3.42 mill/uL (4.7-6.1); RED CELL DISTRIBUTION WIDTH 16.8 % (11.6-14.6)
[2020-07-11] MEDS ORDERED: MIDAZOLAM HCL 5 MG/5 ML VIAL ONE (13:55)
[2020-07-11] MEDS ORDERED: FENTANYL CITRATE/PF 50MCG/ML 5ML VIAL ONE (13:56)
[2020-07-11] MEDS: DIPHENHYDRAMINE 50MG/ML VIAL IV PRN ×2 (18:58→22:25)
[2020-07-11] MEDS: CLONIDINE 0.1MG TABLET PO SCH (21:34)
[2020-07-12] VITALS (13 sets, daily range): BP systolic 104–165; BP diastolic 58–88
[2020-07-12] MEDS: MORPHINE SULFATE 2 MG/ML CPJ (NOT FOR IM USE) IV PRN ×2 (02:05→12:45)
[2020-07-12] MEDS: DIPHENHYDRAMINE 50MG/ML VIAL IV PRN (02:39)
[2020-07-12] MEDS: HALOPERIDOL LACTATE 5MG/ML VIAL IM PRN ×2 (04:19→13:16)
[2020-07-12] MEDS: CLONIDINE 0.1MG TABLET PO PRN (04:22)
[2020-07-12] MEDS: HYDRALAZINE HCL 100MG TABLET PO SCH ×3 (05:03→22:00)
[2020-07-12] MEDS: INSULIN LISPRO 100 UNITS/ML SUBCUT SCH ×4 (07:44→20:42)
[2020-07-12] MEDS: BLOOD SUGAR DIAGNOSTIC STRIP TEST SCH ×4 (07:44→20:42)
[2020-07-12] MEDS: LEVETIRACETAM 500MG TABLET PO SCH ×2 (08:59→21:00)
[2020-07-12] MEDS: TAMSULOSIN HCL 0.4MG SR CAPSULE PO SCH (09:00)
[2020-07-12 15:22] LABS: HEMATOCRIT. 24.9 % (42.0-52.0); HEMOGLOBIN. 8.1 g/dL (14.0-18.0); MEAN CORPUSCULAR HEMOGLOBIN 24.9 pg (28.0-32.0); MEAN CORPUSCULAR VOLUME 76.3 fL (80.0-94.0); PLATELET 250 x1000/uL (130-400); RED BLOOD CELL COUNT 3.26 mill/uL (4.7-6.1); RED CELL DISTRIBUTION WIDTH 16.5 % (11.6-14.6)
[2020-07-12] MEDS ORDERED: LIDOCAINE HCL 1% 20ML VIAL (Pyxis) INJ ONE (16:00)
[2020-07-12] MEDS ORDERED: BUPIVACAINE HCL/PF 0.5% (5MG/ML) 10ML ONE (16:00)
[2020-07-12] MEDS ORDERED: GENTAMICIN SULF 40MG/ML 2ML VIAL ONE (16:00)
[2020-07-12 16:29] LABS: PLATELET ESTIMATE NORMAL
[2020-07-12] MEDS ORDERED: FENTANYL CITRATE/PF 50MCG/ML 2ML VIAL ONE ×2 (18:03→18:51)
[2020-07-12] MEDS ORDERED: DIPHENHYDRAMINE 50MG/ML VIAL ONE (18:04)
[2020-07-12] MEDS ORDERED: MIDAZOLAM HCL 2 MG/2 ML VIAL ONE (18:04)
[2020-07-12] MEDS ORDERED: HYDRALAZINE 20MG/ML VIAL ONE (18:14)
[2020-07-12] MEDS ORDERED: SODIUM CHLORIDE 0.9% 10ML VIAL ONE (18:26)
[2020-07-12] MEDS ORDERED: CEFAZOLIN SODIUM 1000MG/VIAL ONE (18:26)
[2020-07-12] MEDS ORDERED: HEPARIN SODIUM 1,000 UNIT/1ML VIAL IV NR (19:45)
[2020-07-12] MEDS: EPOETIN ALFA-EPBX 4,000 UNIT/ML VIAL SUBCUT SCH (20:47)
[2020-07-12] MEDS: CLONIDINE 0.1MG TABLET PO SCH (21:00)
[2020-07-13] VITALS (8 sets, daily range): BP systolic 120–170; BP diastolic 57–82
[2020-07-13] MEDS: HALOPERIDOL LACTATE 5MG/ML VIAL IM PRN ×2 (01:01→12:07)
[2020-07-13] MEDS: HYDRALAZINE HCL 100MG TABLET PO SCH ×2 (07:14→14:58)
[2020-07-13] MEDS: INSULIN LISPRO 100 UNITS/ML SUBCUT SCH ×3 (07:29→17:57)
[2020-07-13] MEDS: BLOOD SUGAR DIAGNOSTIC STRIP TEST SCH ×3 (07:29→17:57)
[2020-07-13] MEDS ORDERED: ZOSYN PER PHARMACY XX SCH (07:30)
[2020-07-13] MEDS: MORPHINE SULFATE 2 MG/ML CPJ (NOT FOR IM USE) IV PRN ×2 (09:00→15:08)
[2020-07-13] MEDS: DIPHENHYDRAMINE 50MG/ML VIAL IV PRN ×2 (09:56→14:58)
[2020-07-13] MEDS: PIPERACILLIN/TAZOBACTAM 2.25 G in DEXTROSE 5% WATER 50 ML IV SCH ×2 (11:24→14:58)
[2020-07-13] MEDS: TAMSULOSIN HCL 0.4MG SR CAPSULE PO SCH (11:24)
[2020-07-13] MEDS: LEVETIRACETAM 500MG TABLET PO SCH (11:24)
[2020-07-13] MEDS: HYDROCODONE/ACETAMINOPHEN 10/325MG TABLET PO PRN (12:07)
[2020-07-13] MEDS ORDERED: ACETAMINOPHEN 325MG TABLET PO PRN (16:30)
== END 2020-07-13 18:30 | DRG 853 ==
LOC: ER 11:46 → ENRESERV 20:40 → 8WST 21:46 → 5EST 07-05 07:40
PROVIDERS: ADMIT Internal Medicine Nephrology; ATTEND Internal Medicine Nephrology
PROC: 4A10X4Z Monitoring of Central Nervous Electrical Activity, External Approach (ICD-10-PCS; 2020-07-03)
PROC: 5A09357 Assistance with Respiratory Ventilation, Less than 24 Consecutive Hours, Continuous Positive Airway Pressure (ICD-10-PCS; 2020-07-05)
PROC: 30233N1 Transfusion of Nonautologous Red Blood Cells into Peripheral Vein, Percutaneous Approach (ICD-10-PCS; 2020-07-08)
PROC: 047N3ZZ Dilation of Left Popliteal Artery, Percutaneous Approach (ICD-10-PCS; principal; 2020-07-11)
PROC: B41G1ZZ Fluoroscopy of Left Lower Extremity Arteries using Low Osmolar Contrast (ICD-10-PCS; 2020-07-11)
PROC: 0Y6Q0Z3 Detachment at Left 1st Toe, Low, Open Approach (ICD-10-PCS; 2020-07-12)
PROC: 5A1D70Z Performance of Urinary Filtration, Intermittent, Less than 6 Hours Per Day (ICD-10-PCS; 2020-07-13)
DX: A41.9 Sepsis, unspecified organism (principal); J18.9 Pneumonia, unspecified organism; N18.6 End stage renal disease; G82.50 Quadriplegia, unspecified; G92 Toxic encephalopathy; E11.52 Type 2 diabetes mellitus with diabetic peripheral angiopathy with gangrene; E87.2 Acidosis; I12.0 Hypertensive chronic kidney disease with stage 5 chronic kidney disease or end stage renal disease; I69.354 Hemiplegia and hemiparesis following cerebral infarction affecting left non-dominant side; I70.269 Atherosclerosis of native arteries of extremities with gangrene, unspecified extremity; L97.429 Non-pressure chronic ulcer of left heel and midfoot with unspecified severity; N25.81 Secondary hyperparathyroidism of renal origin; I82.611 Acute embolism and thrombosis of superficial veins of right upper extremity; E11.621 Type 2 diabetes mellitus with foot ulcer; R13.10 Dysphagia, unspecified; I65.22 Occlusion and stenosis of left carotid artery; E11.649 Type 2 diabetes mellitus with hypoglycemia without coma; E11.22 Type 2 diabetes mellitus with diabetic chronic kidney disease; D50.9 Iron deficiency anemia, unspecified; D63.8 Anemia in other chronic diseases classified elsewhere; E78.5 Hyperlipidemia, unspecified; E87.70 Fluid overload, unspecified; F41.9 Anxiety disorder, unspecified; F14.10 Cocaine abuse, uncomplicated; Z96.659 Presence of unspecified artificial knee joint; R26.9 Unspecified abnormalities of gait and mobility; Z79.4 Long term (current) use of insulin; Z88.5 Allergy status to narcotic agent; Z79.899 Other long term (current) drug therapy; Z72.0 Tobacco use; Z99.2 Dependence on renal dialysis; Z82.49 Family history of ischemic heart disease and other diseases of the circulatory system; Z79.82 Long term (current) use of aspirin
CPT/HCPCS: 36415; 36600; 37228; 71045; 75710; 80048; 80053; 80305; 80320; 81003; 82140; 82375; 82533; 82607; 82746; 82805; 82947; 82962; 83036; 83525; 83605; 84153; 84206; 84439; 84443; 84481; 84484; 84681; 85014; 85018; 85025; 85049; 85347; 85384; 86850; 86900; 86920; 87070; 87075; 87077; 87186; 87426; 88305; 88311; 94660; 97162; 97166; 97530; 97535; 99285; C1725; C1760; C1769; C1893; C1894; J0360; J0690; J0885; J1200; J1580; J1610; J1630; J1644; J1650; J1815; J2060; J2250; J2270; J2405; J2543; J3010; J3490; J7040; J7060; P9016; P9021; Q9967; G0103; G0480